=== PATIENT | female | born 1995 | race Caucasian/White ===

== ENCOUNTER 2018-05-02 13:01 | Emergency (ER) | payer OTHER ==
[~2018-05-02] VITALS: Ht 160 cm; Wt 58.5 kg
[2018-05-02 13:17] VITALS: Ht 160 cm; Wt 58.5 kg
[2018-05-02 16:04] VITALS: BP 111/59
== END 2018-05-02 16:04 | disposition home or self-care (01) ==
LOC: ED 13:01
DX: F41.9 Anxiety disorder, unspecified (principal); R07.89 Other chest pain